=== PATIENT | male | born 1995 | race Hispanic/Latino ===

== ENCOUNTER → 2023-06-02 | Emergency (ER) | payer OTHER ==
[~2023-06-02] MED LIST: CEFAZOLIN SODIUM 1 GM/VIAL ONE; LIDOCAINE 1% 20 ML MDV ONE
--- NOTE | 2023-06-02 08:14 | RAD REPORT ---
EXAM DESCRIPTION: CT - Head Brain Wo Cont - 06/02/2023 8:00 am CLINICAL HISTORY: head injury COMPARISON: No comparisons TECHNIQUE: All CT scans are performed using dose optimization technique as appropriate and may inclu de automated exposure control or mA/KV adjustment according to patient size. FINDINGS: No intracranial hemorrhage, hydrocephalus or extra-axial fluid collection.No areas of brai n edema or evidence of midline shift. Ethmoid air cell thickening. Air-fluid level in the right frontal sinus. Right forehead laceration wi th comminuted fracture at the right anterior wall of the frontal sinus. The fragment is depressed by approximately 2 millimeters. The posterior wall of the right frontal sinus is not involved. Forehead hematoma. IMPRESSION: No acute intracranial abnormality. Frontal calvarial fracture with depressed fracture in volving the anterior wall of the right frontal sinus. The fracture does not involve the posterior wal l.
[2023-06-02 08:44] LABS: Absolute Lymphocytes (CBC) 1.4 K/uL (0.7-4.9); Hematocrit 42.5 % (39.6-49.0); Lymphocytes % 14.2 % (15.3-44.8); MCV 85.6 fL (80-100); MPV 8.3 fL (7.6-11.3); Platelets 180 thou/uL (152-406); RBC Red Blood Cell Count 4.97 M/uL (4.33-5.43)
[2023-06-02 08:53] LABS: Protime INR 1.03
--- NOTE | 2023-06-02 09:03 | ER ---
Nurse's Notes [facility] Name: Raul Russell Age: 27 yrs Sex: Male : 1995 Arrival Date: 06/02/2023 Time: 07:37 Bed 4 Private MD: Diagnosis: Fracture of other specified skull and facial bones, unspecified side, initial encounter for open fracture;Laceration without foreign body of unspecified part of head, initial encounter Presentation: 06/02 07:40 Chief complaint: Patient states: hit his head on a metal object, laceration noted iw between eyebrow area, denies LOC. Coronavirus screen: At this time, the client does not indicate any symptoms associated with coronavirus-19. Ebola Screen: Patient negative for fever greater than or equal to 101.5 degrees Fahrenheit, and additional compatible Ebola Virus Disease symptoms Patient denies exposure to infectious person. Patient denies travel to an Ebola-affected area in the 21 days before illness onset. No symptoms or risks identified at this time. Mechanism of Injury: resulted from. Initial Sepsis Screen: Does the patient meet any 2 criteria? No. Patient's initial sepsis screen is negative. Does the patient have a suspected source of infection? No. Patient's initial sepsis screen is negative. Risk Assessment: Do you want to hurt yourself or someone else? Patient reports no desire to harm self or others. 07:40 Method Of Arrival: Law Enforcement: [place] [employer] iw 07:40 Acuity: [place] 3 iw Triage Assessment: 08:00 Neuro: Reports. iw Historical: - Allergies: 07:41 No Known Allergies; iw - Home Meds: 07:41 None [Active]; iw - PMHx: 07:41 None; iw - Immunization history:: Adult Immunizations unknown. - Social history:: Smoking status: . - Family history:: not pertinent. - Hospitalizations: : No recent hospitalization is reported. Screenin:42 [facility] ED Fall Risk Assessment (Adult) Score/Fall Risk Level 0 - 2 = Low Risk. Abuse iw screen: Denies threats or abuse. Denies injuries from another. Nutritional screening: No deficits noted. Tuberculosis screening: No symptoms or risk factors identified. Assessment: 07:41 General: Appears in no apparent distress. Behavior is calm, cooperative. Pain: iw Complains of pain in head. Neuro: Level of Consciousness is awake, alert, obeys commands, Oriented to person, place, time, situation, Moves all extremities. Full function. Cardiovascular: Patient's skin is warm and dry. Respiratory: Respiratory effort is even, unlabored, Respiratory pattern is regular, symmetrical. Derm:. Musculoskeletal: Range of motion: intact in all extremities. Injury Description: Laceration sustained to forehead. 08:56 Injury Description: Laceration sustained to forehead is full thickness, jagged, 0.5 to iw 2.5 cm long, was sustained 4-6 hours ago. a small amount of bleeding noted at this time. 09:18 Reassessment: Patient appears in no apparent distress at this time. Patient and/or iw family updated on plan of care and expected duration. Pain level reassessed. Patient is alert, oriented x 3, equal unlabored respirations, skin warm/dry/pink. Vital Signs: 07:40 BP 120 / 75; Pulse 72; Resp 16; Temp 98; Pulse Ox 97% on R/A; iw 09:04 Weight 68.04 kg; Height 5 ft. 9 in. ; eb 09:18 BP 122 / 77; Pulse 89; Resp 16; Pulse Ox 97% on R/A; iw 10:40 BP 115 / 70; Pulse 79; Resp 16; Pulse Ox 98% on R/A; iw 09:04 Body Mass Index 22.15 (68.04 kg, 175.26 cm) eb Grady Coma Score: 07:40 Eye Response: spontaneous(4). Motor Response: obeys commands(6). Verbal Response: iw oriented(5). Total: 15. 07:48 Eye Response: spontaneous(4). Motor Response: obeys commands(6). Verbal Response: rn oriented(5). Total: 15. 09:00 Eye Response: spontaneous(4). Motor Response: obeys commands(6). Verbal Response: rn oriented(5). Total: 15. ED Course: 07:38 Patient arrived in ED. hb 07:38 Pedrito Vale MD is Attending Physician. rn 07:41 Triage completed. iw 07:41 Arm band placed on. iw 08:01 CT Head Brain wo Cont In Process Unspecified. EDMS 08:32 initiated a transfer with Vishal with managed care. eb 08:44 per Vishal patient was denied at [facility] due to being at capacity/ he says for us to eb transfer inmate to any other facility and to call back to manage care to let them know where inmate went. 08:46 Melanie Carter, RN is Primary Nurse. iw 08:46 Patient has correct armband on for positive identification. Pulse ox on. NIBP on. iw 09:05 initiated a transfer with Wilma from the [facility]. eb 09:27 administrative approval given by Wilma Gutierrez Rn/ patient has been accepted to [facility] ER/ Dr. Cooper Sauceda has accepted the patient in transfer without conference with Dr. Vale/ report to be called to [phone]. 10:00 Assist provider with laceration repair. iw 10:01 [facility] dispatch called/ [facility] will be here in one hour for transport. eb 11:00 Patient transferred, IV remains in place. iw Administered Medications: 08:46 Drug: ceFAZolin IVPB 1 grams IVPB once Route: IVPB; Site: right hand; iw 08:50 Follow up: IV Status: Completed infusion iw 08:50 Drug: Lidocaine Infiltration (1 %) 1 vials 20 ml Infiltration once; to bedside {Note: iw admin by Dr. vale.} Volume: 20 ml; Route: Infiltration; Medication: 09:00 VIS not applicable for this client. iw Outcome: 09:03 ER care complete, transfer ordered by . rn 11:09 Transferred by ground EMS [place]. Transfer form completed. X-rays sent w/ patient. iw 11:09 Condition: good 11:09 Instructed on the need for transfer, 11:10 Patient left the ED. iw Signatures: Dispatcher [employer] EDMelanie Covington, RN Pedrito Hutchins MD MD rn Baxter, Heather, RN RN hb Botello, Elizabeth
--- NOTE | 2023-06-02 09:04 | EDPHYS ---
Physician Documentation [facility] Name: Raul Russell Age: 27 yrs Sex: Male : 1995 Arrival Date: 06/02/2023 Time: 07:37 Bed 4 Private MD: ED Physician Pedrito Vale HPI: 06/02 07:48 This 27 yrs old Male presents to ER via Law Enforcement with complaints of Head rn Injury-Adult. 07:48 The patient or guardian reports injury, a laceration. The complaints affect the Right rn brow and forehead. Onset: The symptoms/episode began/occurred just prior to arrival. Severity of symptoms: At their worst the symptoms were mild, in the emergency department the symptoms are unchanged. The patient has not experienced similar symptoms in the past. Patient reports it himself on a metal object. No LOC. Remembers all events. Pain only to forehead and brow.. Historical: - Allergies: 07:41 No Known Allergies; iw - Home Meds: 07:41 None [Active]; iw - PMHx: 07:41 None; iw - Immunization history:: Adult Immunizations unknown. - Social history:: Smoking status: . - Family history:: not pertinent. - Hospitalizations: : No recent hospitalization is reported. ROS: 07:48 Constitutional: Negative for fever, chills, and weight loss, Eyes: Negative for injury, rn pain, redness, and discharge, Neck: Negative for injury, pain, and swelling, Cardiovascular: Negative for chest pain, palpitations, and edema, Respiratory: Negative for shortness of breath, cough, wheezing, and pleuritic chest pain, Abdomen/GI: Negative for abdominal pain, nausea, vomiting, diarrhea, and constipation, Back: Negative for injury and pain, MS/Extremity: Negative for injury and deformity, Skin: Positive for laceration to right brow Neuro: Negative for headache, weakness, numbness, tingling, and seizure, Exam: 07:48 Constitutional: This is a well developed, well nourished patient who is awake, alert, rn and in no acute distress. Head/Face: 4 cm irregular laceration, superficial, to right lower forehead that extends into the brow. No fat herniation. No active bleeding. No foreign body. Eyes: Pupils equal round and reactive to light, extra-ocular motions intact. ENT: No oral injury noted Neck: Trachea midline, no thyromegaly or masses palpated, and no cervical lymphadenopathy. Supple, full range of motion without nuchal rigidity, or vertebral point tenderness. No Meningismus. Chest/axilla: Normal chest wall appearance and motion. Nontender with no deformity. No lesions are appreciated. Cardiovascular: Regular rate and rhythm. No pulse deficits. Respiratory: No increased work of breathing, no retractions or nasal flaring. Abdomen/GI: Soft, non-tender Back: No spinal tenderness. No costovertebral tenderness. Full range of motion. MS/ Extremity: Pulses equal, no cyanosis. Neurovascular intact. Full, normal range of motion. Equal circumference. Neuro: Awake and alert, GCS 15, oriented to person, place, time, and situation. Cranial nerves II-XII grossly intact. Motor strength 5/5 in all extremities. Sensory grossly intact. Vital Signs: 07:40 BP 120 / 75; Pulse 72; Resp 16; Temp 98; Pulse Ox 97% on R/A; iw 09:04 Weight 68.04 kg; Height 5 ft. 9 in. ; eb 09:18 BP 122 / 77; Pulse 89; Resp 16; Pulse Ox 97% on R/A; iw 10:40 BP 115 / 70; Pulse 79; Resp 16; Pulse Ox 98% on R/A; iw 09:04 Body Mass Index 22.15 (68.04 kg, 175.26 cm) eb Grady Coma Score: 07:40 Eye Response: spontaneous(4). Motor Response: obeys commands(6). Verbal Response: iw oriented(5). Total: 15. 07:48 Eye Response: spontaneous(4). Motor Response: obeys commands(6). Verbal Response: rn oriented(5). Total: 15. 09:00 Eye Response: spontaneous(4). Motor Response: obeys commands(6). Verbal Response: rn oriented(5). Total: 15. Laceration: 09:00 Wound Repair of 5cm ( 2.0in ) subcutaneous laceration to forehead. Distal rn neuro/vascular/tendon intact. Anesthesia: Regional Block with 3 mls of 1% lidocaine. Wound prep: Extensive cleansing by nurse, Wound irrigation by nurse, Wound explored extensively. Skin closed with 7 5-0 Prolene using interrupted sutures and sterile technique. Dressed with steri-strips. Patient tolerated well. MDM: 07:38 Patient medically screened. rn 09:00 Differential diagnosis: Contusion of Hematoma on Laceration of Intracranial bleed- rn Concussion cerebral contusion, Skull fracture. Data reviewed: vital signs, nurses notes, radiologic studies, CT scan, and as a result, I will admit patient. Consideration of Admission/Observation Patient was admitted/placed on observation. Escalation of care including admission/observation considered. Counseling: I had a detailed discussion with the patient and/or guardian regarding the historical points, exam findings, and any diagnostic results supporting the discharge/admit diagnosis, radiology results, the need for outpatient follow up, to return to the emergency department if symptoms worsen or persist or if there are any questions or concerns that arise at home. Response to treatment: the patient's symptoms have markedly improved after treatment, and as a result, I will admit patient. ED course: Patient with moderate depth laceration and underlying depressed skull fracture. Does not involve posterior wall of sinus and no cerebral contusion or bleed. [facility] at capacity and cannot take patient. Will transfer to [facility] for further care and evaluation.. 06/02 08:21 Order name: CBC with Diff; Complete Time: 09:00 rn 06/02 08:21 Order name: Basic Metabolic Panel; Complete Time: 09:00 rn 06/02 08:21 Order name: Protime (+inr); Complete Time: 09:00 rn 06/02 08:21 Order name: Ptt, Activated; Complete Time: 09:00 rn 06/02 07:39 Order name: CT Head Brain wo Cont; Complete Time: 08:20 rn 06/02 07:39 Order name: Wound Care; Complete Time: 08:46 rn 06/02 07:39 Order name: Suture Tray at Bedside; Complete Time: 09:13 rn 06/02 08:21 Order name: IV Start; Complete Time: 08:46 rn Administered Medications: 08:46 Drug: ceFAZolin IVPB 1 grams IVPB once Route: IVPB; Site: right hand; iw 08:50 Follow up: IV Status: Completed infusion iw 08:50 Drug: Lidocaine Infiltration (1 %) 1 vials 20 ml Infiltration once; to bedside {Note: iw admin by Dr. vale.} Volume: 20 ml; Route: Infiltration; Disposition Summary: 06/02/23 09:03 Transfer Ordered Notes: Transfer Location: [facility] rn Reason: Higher level of care rn Condition: Stable rn Problem: new rn Symptoms: have improved rn Accepting Physician: Dr. Cooper Sauceda(06/02/23 11:10) iw Diagnosis - Fracture of other specified skull and facial bones, unspecified side, initial rn encounter for open fracture - Laceration without foreign body of unspecified part of head, initial encounter rn Forms: - Medication Reconciliation Form rn - SBAR form rn Signatures: Dispatcher [employer] Melanie Mosqueda RN RN iw Nieto, Roman, MD MD rn Botello, Elizabeth eb Corrections: (The following items were deleted from the chart) 10:20 09:03 Dr. painter eb 11:10 10:20 Dr. Cooper Sauceda [facility]
[2023-06-02 11:36] VITALS: BP 115/70; TEMP 98; O2SAT 98
== END ==
LOC: ER 07:37
PROC: 0HQ1XZZ Repair Face Skin, External Approach (ICD-10-PCS; principal; 2023-06-02)
DX: S02.81XB Fracture of other specified skull and facial bones, right side, initial encounter for open fracture (principal)
CPT/HCPCS: 85025; 80048; 36415; 85610; 85730; 70450; 96374; 99285; 12013; J2001; J0690